=== PATIENT | male | born 1980 | race Caucasian/White ===

== ENCOUNTER 2017-04-29 10:14 | Emergency (ER) | payer OTHER ==
[~2017-04-29] VITALS: Ht 175.3 cm; Wt 125.9 kg
[2017-04-29 10:29] VITALS: TEMP 37.1; Ht 175.3 cm; Wt 125.9 kg
[2017-04-29] MEDS ORDERED: OPTIRAY 320 IV PRN (11:00)
[2017-04-29] MEDS ORDERED: SIMV20TA2 PO (11:38)
[2017-04-29 11:45] LABS: BASO % 0.5 %; BASO ABS # 0.03 K/uL (0-0.2); EOS % 4.8 %; EOS ABS # 0.27 K/uL (0-0.5); HEMATOCRIT 42.6 % (42-52); HEMOGLOBIN 14.6 g/dL (14.0-18.0); IG# 0.01 K/uL (0.00-0.02); LYMPH % 35.7 %; MEAN CELL VOLUME 87.5 fL (80-100); MEAN CORPUSCULAR HGB CONC 34.3 g/dl (32-36); MEAN PLATELET VOLUME 9.3 fL (7.4-10.4); MONO % 13.6 %; MONO ABS # 0.76 K/uL (0.11-0.59); NEUT % 45.2 %; NEUT ABS # 2.53 K/uL (1.4-6.5); PLATELET COUNT 202 K/uL (130-400); RED CELL DISTRIBUTION WIDTH CV 13.2 % (11.5-14.5); RED CELL DISTRIBUTION WIDTH SD 42.1 fL (36.4-46.3)
[2017-04-29 12:04] LABS: CALCIUM 9.2 mg/dl (8.5-10.1); CREATININE 0.81 mg/dl (0.60-1.40); POTASSIUM 3.8 mmol/L (3.5-5.1)
--- NOTE | 2017-04-29 13:15 | DIAGNOSTIC IMAGING REPORT ---
CT NECK WITH INTRAVENOUS CONTRAST HISTORY: L neck fullness/swelling TECHNIQUE: Multiaxial CT images of the neck were performed following the use of intravenous contrast. COMPARISON STUDY: None. FINDINGS: Mild mucosal thickening within the right maxillary sinus. The mastoid air cells are clear. No suspicious lytic or blastic osseous lesions. The lung apices are clear. The thyroid gland enhances normally. There is a skin marker within the left submandibular location. There is subcutaneous fat stranding within the submandibular regions, left greater than right. There is also mild enlargement and edema within the left submandibular gland compared to the right. This also demonstrates slight hyperenhancement and mild left submandibular lymphadenopathy. These findings are consistent with a sialoadenitis. The left submandibular duct is not distended. There are no stones identified. No loculated fluid collections to suggest an abscess. Mild edema along the inferior of the prostate gland may be due to the inflammatory change associated with the left submandibular gland. The contours of the hypopharynx are within normal limits. There few punctate calcifications within the left palatine tonsil. The visualized brain parenchyma and orbits are unremarkable. A few mildly enlarged cervical lymph nodes, left greater the right. Dominant left jugulodigastric lymph node measures 2.0 x 1.6 cm. Prevertebral soft tissues and the epiglottis are normal in thickness. IMPRESSION: 1. Slightly enlarged, edematous, and hyperenhancing left submandibular gland with surrounding inflammatory change. This is consistent with sialoadenitis. 2. Mild left submandibular lymphadenopathy and a few mildly enlarged bilateral cervical lymph nodes. These are nonspecific but likely reactive. 3. No abscess identified. Electronically signed by: Benito Taylor M.D. 04/29/2017 1:14 PM Dictated Date/Time: 04/29/2017 12:51 PM
[2017-04-29] MEDS ORDERED: AMOX875T PO (13:42)
[2017-04-29 13:49] VITALS: BP 126/74; PULSE 60; O2SAT 97
--- NOTE | 2017-04-29 15:43 | EMERGENCY ROOM VISIT NOTE ---
History First contact with patient: 10:39 Chief Complaint: THROAT PAIN/INJURY Stated Complaint: SWELLING IN LEFT SIDE OF NECK,POSSIBLE ABSCESS History of Present Illness The patient is a 36 year old male who presents to the Emergency Room with complaints of left neck swelling and fullness. The patient reports that the swelling has been ongoing for the past 2 days. The patient denies any significant pain. He cannot worsening pain with opening of the mouth. He denies any recent upper respiratory infection, runny nose or sore throat. He was seen at the acute care office in [place], and referred here for possible tonsillar abscess. He denies any pain or fever. The patient denies any recent upper respiratory infection or dental pain. Review of Systems HEENT: Denies dizziness, visual problems, hearing loss, tinnitus. Denies difficulty swallowing or oral lesions. PULMONARY: Denies cough, shortness of breath, sputum production or hemoptysis. CARDIOVASCULAR: Denies chest pain, palpitations, dyspnea on exertion, orthopnea or peripheral edema. GASTROINTESTINAL: Denies diarrhea, constipation, nausea, vomiting, or abdominal pain. GENITOURINARY: Denies dysuria, frequency, urgency or nocturia. NEUROLOGIC: Denies history of epilepsy, CVA, TIA or chronic headaches. MUSCULOSKELETAL: Denies history of joint tenderness/swelling. SKIN: Denies rashes or lesions. PSYCHIATRIC: Denies history of depression or mental illness. ENDOCRINE: Denies history of diabetes or thyroid disorders. Past Medical/Surgical History Medical Problems: (1) Migraines Surgical Problems: (1) No history of previous surgery Family History FH: diabetes mellitus FH: heart disease FH: hypertension FH: kidney disease Social History Smoking Status: Never Smoker Alcohol Use: occasionally Marital Status: single Housing Status: lives with family Occupation Status: employed Current/Historical Medications Scheduled Amoxicillin & Pot Clavulanate (Augmentin 875-125 mg), 1 TAB PO BID Simvastatin (Zocor), 20 MG PO DAILY Physical Exam Vital Signs Date Time Temp Pulse Resp B/P (MAP) Pulse Ox O2 Delivery O2 Flow Rate FiO2 04/29/17 13:49 60 18 126/74 97 Room Air 04/29/17 12:30 69 24 145/99 95 Room Air 04/29/17 10:32 96 Room Air 04/29/17 10:29 37.1 76 18 146/104 96 Room Air Physical Exam CONSTITUTIONAL: Healthy and well nourished. Alert and oriented X 3 with positive affect. Patient does not appear in any acute distress. HEENT: Normocephalic, atraumatic. Pupils equal, round and reactive. No facial edema noted. Ears and nares are clear. OROPHARYNX: Minimal posterior pharyngeal erythema with no obvious tonsillar hypertrophy or exudates. Negative trismus. No evidence for Alverto's angina or retropharyngeal abscess. NECK: Full active range of motion without discomfort. The patient has mild fullness of the left anterior neck region. No palpable induration or fluctuance noted. Trachea is midline. LYMPHATICS: No cervical chain adenopathy noted. RESPIRATORY: Clear to auscultation bilaterally with no wheezing, crackles, rhonchi or stridor. CARDIOVASCULAR: Regular rate and rhythm with no murmurs, rubs or gallops. GASTROINTESTINAL: Bowel sounds present in all quadrants. Soft and nontender to palpation. MUSCULOSKELETAL: Full range of motion of all joints without discomfort. INTEGUMENTARY: No rash or other significant dermatologic conditions noted. HEMATOLOGIC: No ecchymosis or petechiae. NEUROLOGIC: No focal neurologic deficits noted. Facial sensations are intact. Medical Decision & Procedures ER Provider Diagnostic Interpretation: CT of the neck with IV contrast is suggestive of a sialoadenitis with reactive cervical adenopathy. Radiologist report is as follows: CT NECK WITH INTRAVENOUS CONTRAST HISTORY: L neck fullness/swelling TECHNIQUE: Multiaxial CT images of the neck were performed following the use of intravenous contrast. COMPARISON STUDY: None. FINDINGS: Mild mucosal thickening within the right maxillary sinus. The mastoid air cells are clear. No suspicious lytic or blastic osseous lesions. The lung apices are clear. The thyroid gland enhances normally. There is a skin marker within the left submandibular location. There is subcutaneous fat stranding within the submandibular regions, left greater than right. There is also mild enlargement and edema within the left submandibular gland compared to the right. This also demonstrates slight hyperenhancement and mild left submandibular lymphadenopathy. These findings are consistent with a sialoadenitis. The left submandibular duct is not distended. There are no stones identified. No loculated fluid collections to suggest an abscess. Mild edema along the inferior of the prostate gland may be due to the inflammatory change associated with the left submandibular gland. The contours of the hypopharynx are within normal limits. There few punctate calcifications within the left palatine tonsil. The visualized brain parenchyma and orbits are unremarkable. A few mildly enlarged cervical lymph nodes, left greater the right. Dominant left jugulodigastric lymph node measures 2.0 x 1.6 cm. Prevertebral soft tissues and the epiglottis are normal in thickness. IMPRESSION: 1. Slightly enlarged, edematous, and hyperenhancing left submandibular gland with surrounding inflammatory change. This is consistent with sialoadenitis. 2. Mild left submandibular lymphadenopathy and a few mildly enlarged bilateral cervical lymph nodes. These are nonspecific but likely reactive. 3. No abscess identified. Laboratory Results 04/29/17 11:20 Red Blood Count 4.87, Mean Corpuscular Volume 87.5, Mean Corpuscular Hemoglobin 30.0, Mean Corpuscular Hemoglobin Concent 34.3, Mean Platelet Volume 9.3, Neutrophils (%) (Auto) 45.2, Lymphocytes (%) (Auto) 35.7, Monocytes (%) (Auto) 13.6, Eosinophils (%) (Auto) 4.8, Basophils (%) (Auto) 0.5, Neutrophils # (Auto ) 2.53, Lymphocytes # (Auto) 2.00, Monocytes # (Auto) 0.76, Eosinophils # (Auto ) 0.27, Basophils # (Auto) 0.03 04/29/17 11:20 Test 04/29/17 11:20 White Blood Count 5.60 K/uL (4.8-10.8) Red Blood Count 4.87 M/uL (4.7-6.1) Hemoglobin 14.6 g/dL (14.0-18.0) Hematocrit 42.6 % (42-52) Mean Corpuscular Volume 87.5 fL (80-100) Mean Corpuscular Hemoglobin 30.0 pg (25-34) Mean Corpuscular Hemoglobin Concent 34.3 g/dl (32-36) Platelet Count 202 K/uL (130-400) Mean Platelet Volume 9.3 fL (7.4-10.4) Neutrophils (%) (Auto) 45.2 % Lymphocytes (%) (Auto) 35.7 % Monocytes (%) (Auto) 13.6 % Eosinophils (%) (Auto) 4.8 % Basophils (%) (Auto) 0.5 % Neutrophils # (Auto) 2.53 K/uL (1.4-6.5) Lymphocytes # (Auto) 2.00 K/uL (1.2-3.4) Monocytes # (Auto) 0.76 K/uL (0.11-0.59) Eosinophils # (Auto) 0.27 K/uL (0-0.5) Basophils # (Auto) 0.03 K/uL (0-0.2) RDW Standard Deviation 42.1 fL (36.4-46.3) RDW Coefficient of Variation 13.2 % (11.5-14.5) Immature Granulocyte % (Auto) 0.2 % Immature Granulocyte # (Auto) 0.01 K/uL (0.00-0.02) Erythrocyte Sedimentation Rate 34 mm/hr (0-14) Anion Gap 7.0 mmol/L (3-11) Est Creatinine Clear Calc Drug Dose 168.7 ml/min Estimated GFR () 134.4 Estimated GFR (Non- 116.0 BUN/Creatinine Ratio 15.0 (10-20) Calcium Level 9.2 mg/dl (8.5-10.1) C-Reactive Protein 0.43 mg/dl (0-0.29) The above labs were reviewed. Sedimentation rate and C-reactive protein are now elevated, otherwise remaining labs are normal. Rapid strep was performed and was negative. Cultures are pending. ED Course Patient history and physical exam were performed. Nurse's notes were reviewed. Vital signs were reviewed, showing an elevated blood pressure of 146/104. The patient is afebrile. Rapid strep was performed and was negative. I did suggest performing additional lab work and a CT scan of the neck, and the patient was in agreement. IV access was established, and labs were drawn. Review of labs shows an elevated sedimentation rate and CRP, otherwise remaining labs are normal. Rapid strep screen was negative. Strep cultures are pending. CT of the neck with IV contrast is suggestive of a sialoadenitis with mild reactive cervical adenopathy. The patient was advised of his imaging studies. The patient will be treated with Augmentin antibiotics. He was encouraged to intermittently apply heat to the neck. Ibuprofen and Tylenol in alternating fashion as needed for worse pain. I did suggest using sialagogues/sour candy/lemon drops. The patient was encouraged to follow-up with his PCP if symptoms are not improving. Return to the emergency department for any progressively worsening swelling, difficulty swallowing, fever or other concerning symptoms. The patient was happy with plan of care, and voiced understanding of all discharge instructions. Medical Decision Medication Reconcilliation Current Medication List: was personally reviewed by me Blood Pressure Screening Patient's blood pressure: Normal blood pressure Impression Primary Impression: Sialoadenitis of submandibular gland Departure Information Prescriptions Amoxicillin & Pot Clavulanate (Augmentin 875-125 mg) 1 Tab Tab 1 TAB PO BID for 10 Days, #20 TAB Prov: Juan Carvajal PA 04/29/17 Referrals Charles Paul D.OAugustin (PCP) Patient Instructions My [facility]
== END 2017-04-29 13:55 | disposition home or self-care (01) ==
LOC: C.EDB 10:16
DX: K11.20 Sialoadenitis, unspecified (principal); Z83.3 Family history of diabetes mellitus; Z82.49 Family history of ischemic heart disease and other diseases of the circulatory system